=== PATIENT | female | born 1985 | race Caucasian/White ===

== ENCOUNTER 2020-10-19 16:06 | Emergency (ER) | payer OTHER ==
[~2020-10-19] VITALS: Ht 165.1 cm; Wt 72.6 kg
[~2020-10-19 16:06] MED LIST: AMOXICILLIN 50500 MG PO; CELEXA 10 MG TA10 M1 PO; CLONAZEPAM
[2020-10-19 16:55] LABS: URINE BILIRUBIN NEGATIVE (Negative); URINE BLOOD 1+ (Negative); URINE CLARITY CLEAR; URINE COLOR YELLOW; URINE GLUCOSE-RANDOM* NEGATIVE (Negative); URINE KETONES TRACE (Negative); URINE LEUKOCYTES-REFLEX TRACE (Negative); URINE NITRITE-REFLEX NEGATIVE (Negative); URINE PROTEIN (DIPSTICK) NEGATIVE (Negative); URINE SPECIFIC GRAVITY 1.025 (1.005-1.035); URINE UROBILINOGEN 0.2 E.U./dl (0.2-1.0)
[2020-10-19 17:03] LABS: AMP/METHAMP POSITIVE (Negative); BARBITURATES Negative (Negative); BENZODIAZEPINES Negative (Negative); COCAINE Negative (Negative); METHADONE Negative (Negative); OPIATES Negative (Negative); PCP Negative (Negative)
[2020-10-19 17:05] LABS: MUCUS >6 Heavy strn/LPF (None Seen); SQUAMOUS >10 Many /LPF (0-3)
[2020-10-19 17:06] LABS: WBC CASTS 0-3 Few /LPF (None Seen)
[2020-10-19 17:07] LABS: URINE RBC 3-10 Few /HPF (NONE SEEN); URINE WBC-REFLEX 0-5 Rare /HPF (0-5); YEAST-REFLEX Present (None Seen)
[2020-10-19 17:08] LABS: CRYSTALS None Seen /LPF (None Seen)
[2020-10-19 21:00] LABS: ABSOLUTE NEUTROPHILS 4.7 thou/uL (1.4-8.2); BASOPHILS 0.4 % (0.0-2.0); EOSINOPHILS 8.1 % (0.0-3.0); HEMATOCRIT 38.7 % (37.0-47.0); HEMOGLOBIN 13.2 gm/dL (12.0-15.0); LYMPHOCYTES 32.3 % (24.0-44.0); MCH 27.3 pg (26.0-34.0); MCV 80.3 fL (80.0-100.0); PLATELET COUNT 328 thou/uL (150-400); POLYS 53.2 % (36.0-66.0); RBC 4.82 mil/uL (4.20-5.00); RDW 16.5 % (10.5-14.5); WBC 8.8 thou/uL (4.0-11.0)
[2020-10-19 21:08] LABS: ANION GAP 9 mmol/L (7-16); BUN 11 mg/dL (7-18); CALCIUM 8.8 mg/dL (8.5-10.1); CHLORIDE 102 mmol/L (98-107); CO2 21 mmol/L (21-32); CREATININE 0.5 mg/dL (0.6-1.0); GLUCOSE 95 mg/dL (74-106); SODIUM 132 mmol/L (136-145)
[2020-10-19 21:14] LABS: POTASSIUM 4.4 mmol/L (3.5-5.1)
[2020-10-19 21:16] LABS: ALBUMIN 3.3 g/dL (3.4-5.0); DIRECT BILIRUBIN < 0.1 mg/dL (<0.1-0.2); MAGNESIUM 2.2 mg/dL (1.8-2.4); PHOSPHORUS 4.9 mg/dL (2.6-4.7); SALICYLATE < 2.8 mg/dL (2.8-20.0); SGOT 28 U/L (15-37); SGPT 29 U/L (14-59); TOTAL BILIRUBIN 0.3 mg/dL (0.2-1.0); TOTAL PROTEIN 7.1 g/dL (6.4-8.2)
[2020-10-20 07:30] VITALS: BP 124/47
== END 2020-10-20 07:56 | disposition still patient (30) ==
LOC: ER 16:06
PROVIDERS: Emergency Medicine
DX: F23 Brief psychotic disorder (principal); F15.10 Other stimulant abuse, uncomplicated; Z88.2 Allergy status to sulfonamides